=== PATIENT | female | born 1985 | race Caucasian/White ===

== ENCOUNTER 2016-06-12 13:46 | Emergency (ER) | payer OTHER ==
[2016-06-12 15:21] VITALS: BP 128/81
--- NOTE | 2016-06-12 16:02 | UC ---
Complaint Female HPI - HPI Summary HPI Summary: sore on upper thigh/labia, worried it's Herpes. A prior sexual contact told her last year he was exposed to Herpes. She had a similar sore last year, it resolved on its own. Sore is tender to touch. No blistering, no redness or swelling of labia, only one area has a sore. Also having a white/yellowish vaginal discharge, slightly more than usual discharge, mild odor but not "fishy ". No fever. No abd pain. Wishes STD testing "for everything" - History Of Current Complaint Chief Complaint: UCGU Stated Complaint: PERSONAL Time Seen by Provider: 06/12/16 15:41 Hx Obtained From: Patient Hx Last Menstrual Period: 05/20/16 Onset/Duration: Gradual Onset, Lasting Weeks - 1 Timing: Constant Severity Initially: Mild Severity Currently: Mild Character: Burning - sore right labia Alleviating Factor(s): Nothing Associated Signs And Symptoms: Positive: Vaginal Discharge - yellowish - Risk Factors Ectopic Risk Factor: Negative Ovarian Torsion Risk Factor: Negative - Allergies/Home Medications Allergies/Adverse Reactions: Allergies Allergy/AdvReac Type Severity Reaction Status Date / Time No Known Allergies Allergy Verified 06/12/16 15:21 PMH/Surg Hx/FS Hx/Imm Hx Previously Healthy: Yes - Surgical History Surgical History: None - Family History Known Family History: Positive: None - Social History Occupation: Employed Full-time Lives: With Family Alcohol Use: Occasionally Substance Use Type: None Smoking Status (MU): Former Smoker When Did the Patient Quit Smoking/Using Tobacco: 2009 - Immunization History Most Recent Influenza Vaccination: Not the Season Review of Systems Constitutional: Negative Skin: Rash - right upper thigh/labia Eyes: Negative ENT: Negative Respiratory: Negative Cardiovascular: Negative Gastrointestinal: Negative Genitourinary: Other - vaginal discharge Motor: Negative Neurovascular: Negative Musculoskeletal: Negative Neurological: Negative Psychological: Negative All Other Systems Reviewed And Are Negative: Yes Physical Exam Triage Information Reviewed: Yes Appearance: Well-Appearing, No Pain Distress, Well-Nourished Vital Signs: Initial Vital Signs Temp 98.8 F 06/12/16 15:15 Pulse 89 06/12/16 15:15 Resp 16 06/12/16 15:15 BP 128/81 06/12/16 15:15 Pulse Ox 100 06/12/16 15:15 Vital Signs Reviewed: Yes Eye Exam: Normal Neck exam: Normal Respiratory Exam: Normal Cardiovascular Exam: Normal Musculoskeletal Exam: Normal Neurological Exam: Normal Psychological Exam: Normal Skin Exam: Other - eroded area, 1cm x 2cm on right labia majora at upper thigh. Raw, oozing, tender to touch. No surrounding redness or swelling. No blisters seen. Does not appear consistent with Herpes, but is very tender. Swabbed the sore for Herpes. She did her own vaginal swab, sent for Affirm. Urine sent for GC/chlamydia. Blood for HIV and syphilis screens. Complaint Female Dx - Differential Dx/Diagnosis Provider Diagnoses: bacterial vaginosis Discharge - Discharge Plan Condition: Stable Disposition: HOME Prescriptions: Metronidazole [Flagyl 500 MG TAB] 500 mg PO TID #21 tab Patient Education Materials: Bacterial Vaginosis (ED) Referrals: Emily Irwin MD [Primary Care Provider] - Additional Instructions: We sent several tests today. All of them take 3 days to get results. We sent gonorrhea, chlamydia, yeast, bacterial overgrowth, and trichomonas tests, as well as blood tests for HIV and syphilis. We will contact you if anything is positive. If you haven't heard from us by noon, call here to verify all of your results were normal.
[2016-06-13 09:57] LABS: Syphilis Index < 0.1 Index
== END 2016-06-12 16:16 | disposition home or self-care (01) ==
LOC: UCCORT 13:46
DX: N76.0 Acute vaginitis (principal); Z11.4 Encounter for screening for human immunodeficiency virus [HIV]; Z87.891 Personal history of nicotine dependence
CPT/HCPCS: 36415; 86592; 86703; 87480; 87491; 87510; 87529; 87591; 87660; 99212; G0463

== ENCOUNTER 2016-10-06 09:03 | Emergency (ER) | payer MEDICAID ==
[2016-10-06 09:47] VITALS: BP 108/80
--- NOTE | 2016-10-06 09:49 | UC ---
Lower Extremity/Ankle HPI - HPI Summary HPI Summary: LEFT FOOT PAIN X 3 DAY + INJURY TO LEFT ANKLE / FOOT , TWISTED HIS LEFT FOOT HE HIT THE LOWER PART OF THE BASKETBALL HOOP PAIN WITH WALKING , MILD SWELLING - History of Current Complaint Chief Complaint: UCLowerExtremity Stated Complaint: RIGHT LEG PAIN Time Seen by Provider: 10/06/16 09:44 Hx Obtained From: Patient, Family/Research Program Coordinator Hx Last Menstrual Period: 09/28/16 Onset/Duration: Sudden Onset, Lasting Days - 3, Still Present Severity Initially: Moderate Severity Currently: Moderate Aggravating Factor(s): Standing, Ambulation Alleviating Factor(s): Rest, Elevation, Ice Able to Bear Weight: Yes - Allergies/Home Medications Allergies/Adverse Reactions: Allergies Allergy/AdvReac Type Severity Reaction Status Date / Time No Known Allergies Allergy Verified 10/06/16 09:43 PMH/Surg Hx/FS Hx/Imm Hx Previously Healthy: Yes - Surgical History Surgical History: None - Family History Known Family History: Positive: None Negative: Diabetes - Social History Alcohol Use: Occasionally Substance Use Type: None Smoking Status (MU): Former Smoker When Did the Patient Quit Smoking/Using Tobacco: 2009 - Immunization History Most Recent Influenza Vaccination: Not the Season Review of Systems Constitutional: Negative Skin: Negative Eyes: Negative ENT: Negative Respiratory: Negative All Other Systems Reviewed And Are Negative: Yes Physical Exam Triage Information Reviewed: Yes Appearance: Well-Appearing, No Pain Distress, Well-Nourished Vital Signs: Initial Vital Signs Temp 97.4 F 10/06/16 09:39 Pulse 86 10/06/16 09:39 Resp 14 10/06/16 09:39 BP 108/80 10/06/16 09:39 Pulse Ox 100 10/06/16 09:39 Vital Signs Reviewed: Yes Eyes: Positive: Conjunctiva Clear ENT: Positive: Normal ENT inspection, Hearing grossly normal, Pharynx normal Neck: Positive: Supple, Nontender, No Lymphadenopathy Respiratory: Positive: Chest non-tender, Lungs clear, Normal breath sounds Cardiovascular: Positive: RRR, No Murmur, Pulses Normal Musculoskeletal: Positive: Other: - LEFT ANKLE: NORMAL EXAM LEFT FOOT : MILD SWELLING , TENDERNESS PROXIMAL FOOT , GOOD ROM Lower Extremity Course/Dx - Differential Dx/Diagnosis Provider Diagnoses: SPRAIN LEFT FOOT Discharge - Discharge Plan Condition: Stable Disposition: HOME Patient Education Materials: Foot Sprain (ED) Referrals: Emily Irwin MD [Primary Care Provider] - 7 Days
--- NOTE | 2016-10-06 10:10 | RAD ---
INDICATION: Right lower extremity pain COMPARISON: None TECHNIQUE: AP, lateral, and oblique views were obtained. FINDINGS: The bony structures, joint spaces, and soft tissues are normal for age. IMPRESSION: NEGATIVE EXAMINATION.
--- NOTE | 2016-10-06 10:40 | UC ---
Lower Extremity/Ankle HPI - HPI Summary HPI Summary: RIGHT PAGAN PAIN X 5 DAY , STARTED TO EXERCISE FOR THE PAST 2 MONTH, RUNNING FOR ABOUT 20 MIN EVER OTHER DAY , INCREASE PAIN WITH WALING AND WEIGHT BEARING NO SWELLING, NO KNOWN INJURY - History of Current Complaint Chief Complaint: UCLowerExtremity Stated Complaint: RIGHT LEG PAIN Time Seen by Provider: 10/06/16 09:44 Hx Obtained From: Patient, Family/Consulting Services Manager Hx Last Menstrual Period: 09/28/16 Onset/Duration: Sudden Onset, Lasting Days - 5, Still Present Severity Initially: Moderate Severity Currently: Moderate Pain Intensity: 7 Pain Scale Used: 0-10 Numeric Aggravating Factor(s): Standing, Ambulation Alleviating Factor(s): Rest, Elevation, Ice Able to Bear Weight: Yes - Allergies/Home Medications Allergies/Adverse Reactions: Allergies Allergy/AdvReac Type Severity Reaction Status Date / Time No Known Allergies Allergy Verified 10/06/16 09:43 PMH/Surg Hx/FS Hx/Imm Hx Previously Healthy: Yes - Surgical History Surgical History: None - Family History Known Family History: Positive: None Negative: Diabetes - Social History Alcohol Use: Occasionally Substance Use Type: None Smoking Status (MU): Former Smoker When Did the Patient Quit Smoking/Using Tobacco: 2009 - Immunization History Most Recent Influenza Vaccination: Not the Season Review of Systems Constitutional: Negative Skin: Negative Eyes: Negative ENT: Negative Respiratory: Negative All Other Systems Reviewed And Are Negative: Yes Physical Exam Triage Information Reviewed: Yes Appearance: Well-Appearing, No Pain Distress, Well-Nourished Vital Signs: Initial Vital Signs Temp 97.4 F 10/06/16 09:39 Pulse 86 10/06/16 09:39 Resp 14 10/06/16 09:39 BP 108/80 10/06/16 09:39 Pulse Ox 100 10/06/16 09:39 Vital Signs Reviewed: Yes Eyes: Positive: Conjunctiva Clear ENT: Positive: Normal ENT inspection, Hearing grossly normal, Pharynx normal Neck: Positive: Supple, Nontender, No Lymphadenopathy Respiratory: Positive: Chest non-tender, Lungs clear, Normal breath sounds Cardiovascular: Positive: RRR, No Murmur, Pulses Normal Musculoskeletal: Positive: Other: - RIGHT PAGAN: NO SWELLING, NO ERYTHEMA, + TENDERNESS MID PAGAN AREA Lower Extremity Course/Dx - Differential Dx/Diagnosis Provider Diagnoses: PAGAN SPLINT RIGHT LEG Discharge - Discharge Plan Condition: Stable Disposition: HOME Patient Education Materials: Pagan Splints (ED) Referrals: Emily Irwin MD [Primary Care Provider] - 7 Days
== END 2016-10-06 10:23 | disposition home or self-care (01) ==
LOC: UCCORT 09:03
DX: S93.602A Unspecified sprain of left foot, initial encounter (principal); X50.1XXA Overexertion from prolonged static or awkward postures, initial encounter; Y93.67 Activity, basketball; Y99.9 Unspecified external cause status
CPT/HCPCS: 99211; G0463

== ENCOUNTER 2016-11-10 15:34 | Emergency (ER) | payer MEDICAID ==
[2016-11-10 17:11] VITALS: BP 109/77
--- NOTE | 2016-11-10 17:27 | UC ---
Complaint Female HPI - HPI Summary HPI Summary: complaint of vaginal discharge that started approx 4 weeks ago white mucousy discharge- no odor denies itchiness mild lower back pain for the last 2 weeks after she started running regularly denies dysuria denies abdominal pain, pelvic pain denies fever LMP 10/29/16- normal sees Dr Iriwn -PCP- pap smear scheduled for 11/14/16 - History Of Current Complaint Chief Complaint: UCGU Stated Complaint: PERSONAL Time Seen by Provider: 11/10/16 17:19 Hx Obtained From: Patient Hx Last Menstrual Period: 10/29/16 - Allergies/Home Medications Allergies/Adverse Reactions: Allergies Allergy/AdvReac Type Severity Reaction Status Date / Time No Known Allergies Allergy Verified 11/10/16 17:11 PMH/Surg Hx/FS Hx/Imm Hx Previously Healthy: Yes - Surgical History Surgical History: None - Family History Known Family History: Positive: None Negative: Cardiac Disease, Hypertension, Diabetes - Social History Occupation: Employed Full-time Lives: With Family Alcohol Use: Occasionally Substance Use Type: None Smoking Status (MU): Former Smoker When Did the Patient Quit Smoking/Using Tobacco: 2009 - Immunization History Most Recent Influenza Vaccination: Not the Season Review of Systems Constitutional: Negative Skin: Negative Eyes: Negative ENT: Negative Respiratory: Negative Cardiovascular: Negative Gastrointestinal: Negative Genitourinary: Other - vaginal discharge Motor: Negative Neurovascular: Negative Musculoskeletal: Negative Neurological: Negative Psychological: Negative All Other Systems Reviewed And Are Negative: Yes Physical Exam Triage Information Reviewed: Yes Appearance: No Pain Distress, Well-Nourished Vital Signs: Initial Vital Signs Temp 99.5 F 11/10/16 17:06 Pulse 84 11/10/16 17:06 Resp 16 11/10/16 17:06 BP 109/77 11/10/16 17:06 Pulse Ox 99 11/10/16 17:06 Vital Signs Reviewed: Yes Eyes: Positive: Conjunctiva Clear ENT: Positive: Pharynx normal, TMs normal Neck: Positive: No Lymphadenopathy Respiratory: Positive: Lungs clear, Normal breath sounds, No respiratory distress Cardiovascular: Positive: RRR, No Murmur, Pulses Normal Abdomen Description: Positive: Nontender, Soft Bowel Sounds: Positive: Present Musculoskeletal: Positive: No Edema Neurological: Positive: Alert Psychological Exam: Normal Skin Exam: Normal Skin: Positive: Other - External genitalia without erythema Vaginal vault with thin white discharge. Cervix is of normal color without lesion. The os is closed. There is no bleeding noted. Uterus is noted to be of normal size and nontender. No cervical motion tenderness is seen. Complaint Female Dx - Differential Dx/Diagnosis Differential Diagnosis/HQI/PQRI: Sexually Transmitted Disease, Other - vaginosis Provider Diagnoses: bacterial vaginosis Discharge - Discharge Plan Condition: Stable Disposition: HOME Prescriptions: Metronidazole [Flagyl 500 MG TAB] 500 mg PO BID #14 tab Patient Education Materials: Bacterial Vaginosis (ED) Referrals: Emily Irwin MD [Primary Care Provider] - Additional Instructions: Please start flagyl as directed Increase fluids and rest Take acetaminophen or ibuprofen for fever or pain Please review your discharge instructions. If your symptoms do not improve please call your primary care provider or return to urgent care.
== END 2016-11-10 18:16 | disposition home or self-care (01) ==
LOC: UCCORT 15:34
DX: N76.0 Acute vaginitis (principal); Z87.891 Personal history of nicotine dependence
CPT/HCPCS: 87480; 87510; 87661; 99212; G0463

== ENCOUNTER 2017-01-02 16:07 | Emergency (ER) | payer OTHER ==
[2017-01-02 16:19] VITALS: BP 116/84
--- NOTE | 2017-01-02 16:49 | UC ---
Throat Pain/Nasal Crow HPI - HPI Summary HPI Summary: 31 y/o with c/o sore throat x 24 hours, pain sternal region, no SOB, no deep chest pain, fatigue/ malaise, overall body aches, ear pain with swallowing R side. no other PMH, no recent ABX, illnesses. - History of Current Complaint Hx Obtained From: Patient Hx Last Menstrual Period: 12/26/16 ?: Yes Onset/Duration: Sudden Onset, Lasting Hours, Still Present Severity: Mild Cough: Nonproductive - minimal Associated Signs & Symptoms: Positive: Fever - tactile feeling - Epiglottits Risk Factors Epiglottis Risk Factors: Negative <Dilia Ely - Last Filed: 01/02/17 17:05> <Lois Young - Last Filed: 01/02/17 17:11> - History of Current Complaint Chief Complaint: UCGeneralIllness Stated Complaint: SORE THROAT,CHEST PAIN Time Seen by Provider: 01/02/17 16:11 - Allergies/Home Medications Allergies/Adverse Reactions: Allergies Allergy/AdvReac Type Severity Reaction Status Date / Time No Known Allergies Allergy Verified 01/02/17 16:14 Home Medications: Home Medications Ibuprofen TAB* [Advil TAB*] 200 mg PO Q6H PRN 01/02/17 [History Confirmed ] ValACYclovir (*) [Valtrex 500 mg (*)] 500 mg PO QAM 01/02/17 [History Confirmed 01/02/17] PMH/Surg Hx/FS Hx/Imm Hx Previously Healthy: Yes - Surgical History Surgical History: None - Family History Known Family History: Positive: None Negative: Cardiac Disease, Hypertension, Diabetes - Social History Alcohol Use: Occasionally Substance Use Type: None Smoking Status (MU): Former Smoker When Did the Patient Quit Smoking/Using Tobacco: 2009 - Immunization History Most Recent Influenza Vaccination: Not the 2017/2017 Season <iDlia Ely - Last Filed: 01/02/17 17:05> Review of Systems Constitutional: Fatigue ENT: Sore Throat, Ear Ache Cardiovascular: Chest Pain - sternal All Other Systems Reviewed And Are Negative: Yes <Dilia Ely - Last Filed: 01/02/17 17:05> Physical Exam Triage Information Reviewed: Yes Appearance: Well-Appearing, No Pain Distress, Well-Nourished Vital Signs: Initial Vital Signs Temp 99 F 01/02/17 16:11 Pulse 104 01/02/17 16:11 Resp 16 01/02/17 16:11 BP 116/84 01/02/17 16:11 Pulse Ox 100 01/02/17 16:11 Vital Signs Reviewed: Yes Eyes: Positive: Conjunctiva Clear ENT: Positive: Hearing grossly normal, Pharyngeal erythema - mild to moderate, TM dull - fluid behind R TM Neck: Positive: Supple, Nontender, Enlarged Nodes @ - submand Respiratory: Positive: Chest non-tender, Lungs clear, Normal breath sounds, No respiratory distress, No accessory muscle use Cardiovascular: Positive: RRR, No Murmur Abdomen Description: Positive: Nontender, No Organomegaly Skin Exam: Normal <Dilia Ely - Last Filed: 01/02/17 17:05> Vital Signs: Initial Vital Signs Temp 99 F 01/02/17 16:11 Pulse 104 01/02/17 16:11 Resp 16 01/02/17 16:11 BP 116/84 01/02/17 16:11 Pulse Ox 100 01/02/17 16:11 <Lois Young - Last Filed: 01/02/17 17:11> Throat Pain/Nasal Course/Dx - Course Course Of Treatment: rapid strep +, ABx sent in to pharm, work note, follow up in 2-3 days if symptoms not improved - Differential Dx/Diagnosis Differential Diagnosis/HQI/PQRI: Epiglottitis, Influenza, Otitis Media, Pharyngitis Provider Diagnoses: pharyngitis, strep A + <Dilia Ely - Last Filed: 01/02/17 17:05> Discharge <Dilia Ely - Last Filed: 01/02/17 17:05> <Lois Young - Last Filed: 01/02/17 17:11> - Discharge Plan Condition: Good Disposition: HOME Prescriptions: Amoxicillin PO (*) [Amoxicillin 500 MG CAP*] 500 mg PO Q12H #20 cap Patient Education Materials: Strep Throat (ED) Forms: *Work Release Referrals: Emily Irwin MD [Primary Care Provider] - Additional Instructions: - Rapid strep + for step throat Antibiotics as directed x 10 days - motrin/ tylenol as needed for pain - Call for blood results within 3-4 days - Follow up at ER or UC if symptoms do not improve or worsen over 48 hours Attestation Statement User Type: Provider - I was available for consult. This patient was seen by the ARLINE. The patient was not presented to, seen by, or examined by me. -Nancie <Lois Young - Last Filed: 01/02/17 17:11>
== END 2017-01-02 17:00 | disposition home or self-care (01) ==
LOC: UCCORT 16:07
DX: J02.0 Streptococcal pharyngitis (principal); Z11.4 Encounter for screening for human immunodeficiency virus [HIV]; Z87.891 Personal history of nicotine dependence
CPT/HCPCS: 36415; 86703; 99212; G0463

== ENCOUNTER 2017-02-16 15:43 | Emergency (ER) | payer OTHER ==
[2017-02-16 15:58] VITALS: BP 116/86
--- NOTE | 2017-02-16 17:02 | UC ---
Throat Pain/Nasal Crow HPI - History of Current Complaint Chief Complaint: UCGeneralIllness Stated Complaint: SORE THROAT Time Seen by Provider: 02/16/17 16:53 Hx Last Menstrual Period: 01/26/17 - Allergies/Home Medications Allergies/Adverse Reactions: Allergies Allergy/AdvReac Type Severity Reaction Status Date / Time No Known Allergies Allergy Verified 01/02/17 16:14 PMH/Surg Hx/FS Hx/Imm Hx - Surgical History Surgical History: None - Family History Known Family History: Positive: None Negative: Cardiac Disease, Hypertension, Diabetes - Social History Alcohol Use: Occasionally Substance Use Type: None Smoking Status (MU): Former Smoker When Did the Patient Quit Smoking/Using Tobacco: 2009 - Immunization History Most Recent Influenza Vaccination: Not the Season Physical Exam Vital Signs: Initial Vital Signs Temp 98.2 F 02/16/17 15:53 Pulse 74 02/16/17 15:53 Resp 16 02/16/17 15:53 BP 116/86 02/16/17 15:53 Pulse Ox 100 02/16/17 15:53
[2017-02-19 23:17] LABS: HS/VZ Source LIP; Varicella Zoster Result Negative (Negative); Varicella Zoster Source LIP
== END 2017-02-16 17:26 | disposition home or self-care (01) ==
LOC: UCCORT 15:43
DX: J02.9 Acute pharyngitis, unspecified (principal); Z87.891 Personal history of nicotine dependence
CPT/HCPCS: 87529; 87651; 87798; 99211; G0463

== ENCOUNTER 2017-06-28 07:15 | Emergency (ER) | payer OTHER ==
[2017-06-28 07:49] VITALS: BP 113/69
--- NOTE | 2017-06-28 08:12 | UC ---
Complaint Female HPI - HPI Summary HPI Summary: 32F with burning with urination for 1 day. No fever. No n.v/d. Currently on cephalexin for dental abscess. Just had a nuva ring 2 weeks ago placed. no . - History Of Current Complaint Chief Complaint: UCGU Stated Complaint: URINARY Time Seen by Provider: 06/28/17 07:55 Hx Obtained From: Patient Hx Last Menstrual Period: 06/17/17 Timing: Constant Severity Initially: Moderate Severity Currently: Moderate Pain Intensity: 4 Aggravating Factor(s): Urination Alleviating Factor(s): Nothing - Allergies/Home Medications Allergies/Adverse Reactions: Allergies Allergy/AdvReac Type Severity Reaction Status Date / Time No Known Allergies Allergy Verified 06/28/17 07:40 Home Medications: Home Medications Ms Cephalexin 500 mg PO TID 06/28/17 [History Confirmed 06/28/17] Ms Nuvaring 1 unit VAGINAL SEE INSTRUCTIONS 06/28/17 [History Confirmed 06/28/17 ] PMH/Surg Hx/FS Hx/Imm Hx Previously Healthy: Yes - Surgical History Surgical History: Yes Surgery Procedure, Year, and Place: D and C - Family History Known Family History: Positive: None Negative: Cardiac Disease, Hypertension, Diabetes - Social History Occupation: Employed Full-time Alcohol Use: Occasionally Substance Use Type: None Smoking Status (MU): Former Smoker When Did the Patient Quit Smoking/Using Tobacco: 2009 - Immunization History Most Recent Influenza Vaccination: Not the Season Review of Systems Genitourinary: Dysuria, Frequency, Urgency Is Patient Immunocompromised?: No All Other Systems Reviewed And Are Negative: Yes Physical Exam Triage Information Reviewed: Yes Appearance: Well-Appearing, No Pain Distress, Well-Nourished Vital Signs: Initial Vital Signs Temp 99 F 06/28/17 07:43 Pulse 76 06/28/17 07:43 Resp 18 06/28/17 07:43 BP 113/69 06/28/17 07:43 Pulse Ox 100 06/28/17 07:43 Vital Signs Reviewed: Yes Eye Exam: Normal ENT Exam: Normal Dental Exam: Normal Neck exam: Normal Neck: Positive: 1 Respiratory Exam: Normal Cardiovascular Exam: Normal Abdominal Exam: Normal Abdomen Description: Negative: CVA Tenderness (R), CVA Tenderness (L) Musculoskeletal Exam: Normal Neurological Exam: Normal Psychological Exam: Normal Skin Exam: Normal Complaint Female Dx - Course Course Of Treatment: Send for culture. Finish the cephalexin . If resistant to cephalexin then can start alternative antibiotic. - Differential Dx/Diagnosis Differential Diagnosis/HQI/PQRI: Ureteral Stone, Urinary Tract Infection Provider Diagnoses: UTI Discharge - Discharge Plan Condition: Good Disposition: HOME Referrals: Emily Irwin MD [Primary Care Provider] - 4 Days
== END 2017-06-28 08:43 | disposition home or self-care (01) ==
LOC: UCCORT 07:15
DX: N39.0 Urinary tract infection, site not specified (principal); Z87.891 Personal history of nicotine dependence
CPT/HCPCS: 81003; 87086; 99211; G0463

== ENCOUNTER 2017-08-09 16:42 | Emergency (ER) | payer OTHER ==
[2017-08-09 17:16] VITALS: BP 134/82
--- NOTE | 2017-08-09 17:29 | UC ---
Complaint Female HPI - HPI Summary HPI Summary: On 3 rd month of nuova Ring---Has had large amont of vaginal d/c without pain, odor, uses a condom same partner for >1 year on valtrex - History Of Current Complaint Chief Complaint: UCGU Stated Complaint: PERSONAL Time Seen by Provider: 08/09/17 17:26 Hx Obtained From: Patient Hx Last Menstrual Period: 06/17/17 ?: No Onset/Duration: Sudden Onset, Lasting Days, Still Present Timing: Constant Severity Currently: None Pain Intensity: 0 Pain Scale Used: 0-10 Numeric - Allergies/Home Medications Allergies/Adverse Reactions: Allergies Allergy/AdvReac Type Severity Reaction Status Date / Time No Known Allergies Allergy Verified 08/09/17 17:16 Home Medications: Home Medications Nuvaring 1 dose VAGINAL MONTHLY 08/09/17 [History Confirmed 08/09/17] PMH/Surg Hx/FS Hx/Imm Hx Previously Healthy: Yes - Surgical History Surgical History: Yes Surgery Procedure, Year, and Place: D and C - Family History Known Family History: Positive: None Negative: Cardiac Disease, Hypertension, Diabetes - Social History Occupation: Employed Full-time Lives: With Family Alcohol Use: Occasionally Substance Use Type: None Smoking Status (MU): Former Smoker When Did the Patient Quit Smoking/Using Tobacco: 2009 - Immunization History Most Recent Influenza Vaccination: Not the Season Review of Systems Constitutional: Negative Skin: Negative Eyes: Negative ENT: Negative Respiratory: Negative Cardiovascular: Negative Gastrointestinal: Negative Genitourinary: Negative, Vaginal/Penile Discharge Motor: Negative Neurovascular: Negative Musculoskeletal: Negative Neurological: Negative Psychological: Negative Is Patient Immunocompromised?: No All Other Systems Reviewed And Are Negative: Yes Physical Exam Triage Information Reviewed: Yes Appearance: Well-Appearing, No Pain Distress, Well-Nourished Vital Signs: Initial Vital Signs Temp 99.2 F 08/09/17 17:13 Pulse 51 08/09/17 17:13 Resp 12 08/09/17 17:13 BP 134/82 08/09/17 17:13 Pulse Ox 100 08/09/17 17:13 Vital Signs Reviewed: Yes Eye Exam: Normal Eyes: Positive: Conjunctiva Clear ENT Exam: Normal ENT: Positive: Normal ENT inspection, Hearing grossly normal, Pharynx normal. Negative: Nasal congestion, Nasal drainage, Trismus, Muffled voice, Hoarse voice Dental Exam: Normal Neck exam: Normal Neck: Positive: Supple, Nontender, No Lymphadenopathy Respiratory Exam: Normal Respiratory: Positive: Chest non-tender, Lungs clear, Normal breath sounds, No respiratory distress, No accessory muscle use Cardiovascular Exam: Normal Cardiovascular: Positive: RRR, No Murmur, Pulses Normal, Brisk Capillary Refill Abdominal Exam: Normal Abdomen Description: Positive: Nontender, No Organomegaly, Soft. Negative: CVA Tenderness (R), CVA Tenderness (L), Distended, Guarding Bowel Sounds: Positive: Present Musculoskeletal Exam: Normal Musculoskeletal: Positive: Strength Intact, ROM Intact, No Edema Neurological Exam: Normal Neurological: Positive: Alert, Muscle Tone Normal Psychological Exam: Normal Skin Exam: Normal UC Physical Exam Vital Signs On Initial Exam: Initial Vitals Temp Pulse Resp BP Pulse Ox 99.2 F 51 12 134/82 100 08/09/17 17:13 08/09/17 17:13 08/09/17 17:13 08/09/17 17:13 08/09/17 17:13 - Genitalia Exam Female Genitourinary: Normal External Exam, Other - white vaginal discharge-- Complaint Female Dx - Course Course Of Treatment: lab studies obtain will treat based on lab studies, - Differential Dx/Diagnosis Provider Diagnoses: vaginitis Discharge - Discharge Plan Condition: Stable Disposition: HOME Patient Education Materials: Vaginitis (ED) Referrals: Emily Irwin MD [Primary Care Provider] - If Needed
== END 2017-08-09 18:05 | disposition home or self-care (01) ==
LOC: UCCORT 16:42
DX: N76.0 Acute vaginitis (principal); Z87.891 Personal history of nicotine dependence
CPT/HCPCS: 87480; 87491; 87510; 87591; 87661; 99211; G0463

== ENCOUNTER 2017-09-26 10:08 | Emergency (ER) | payer OTHER ==
[2017-09-26 11:04] VITALS: BP 120/82
--- NOTE | 2017-09-26 11:36 | UC ---
Respiratory Complaint HPI - HPI Summary HPI Summary: Cough and congestion for about 8 days. No fever, sob, hemoptysis. Cough is productive of clear phlegm. Son had similar illness about a week ago. She denies asthma, smoking, lung disease. - History of Current Complaint Chief Complaint: UCRespiratory Stated Complaint: CONGESTION Time Seen by Provider: 09/26/17 11:19 Hx Obtained From: Patient Hx Last Menstrual Period: 08/31 Onset/Duration: Gradual Onset, Lasting Days Timing: Constant Severity Initially: Mild Severity Currently: Moderate Pain Intensity: 0 Character: Cough: Productive Aggravating Factors: Deep Breaths, Recumbent Position Alleviating Factors: Upright Position, Spontaneous Resolution Associated Signs And Symptoms: Positive: URI, Nasal Congestion. Negative: Dyspnea, Fever, Chills, Pleuritic Chest Pain, Wheezing, Hemoptysis, Dizziness, Calf Pain, Calf Swelling, Sinus Discomfort - Allergies/Home Medications Allergies/Adverse Reactions: Allergies Allergy/AdvReac Type Severity Reaction Status Date / Time No Known Allergies Allergy Verified 09/26/17 11:04 Home Medications: Home Medications Fluticasone NASAL SPRAY 50MCG* [Flonase NASAL SPRAY 50MCG*] 2 spray BOTH NARES DAILY PRN 09/26/17 [History Confirmed 09/26/17] PMH/Surg Hx/FS Hx/Imm Hx Previously Healthy: Yes - Surgical History Surgical History: Yes Surgery Procedure, Year, and Place: D and C - Family History Known Family History: Positive: None Negative: Cardiac Disease, Hypertension, Diabetes - Social History Occupation: Employed Full-time Lives: With Family Alcohol Use: Occasionally Substance Use Type: None Smoking Status (MU): Former Smoker When Did the Patient Quit Smoking/Using Tobacco: 2009 - Immunization History Most Recent Influenza Vaccination: Not the Season Review of Systems ENT: Sinus Congestion Respiratory: Cough All Other Systems Reviewed And Are Negative: Yes Physical Exam Triage Information Reviewed: Yes Appearance: Well-Appearing, No Pain Distress, Well-Nourished Vital Signs: Initial Vital Signs Temp 98.4 F 09/26/17 10:57 Pulse 91 09/26/17 10:57 Resp 20 09/26/17 10:57 BP 120/82 09/26/17 10:57 Pulse Ox 100 09/26/17 10:57 Vital Signs Reviewed: Yes Eyes: Positive: Conjunctiva Clear. Negative: Conjunctiva Inflamed ENT: Positive: Normal ENT inspection, Pharynx normal, Nasal congestion, TMs normal, Uvula midline. Negative: Pharyngeal erythema, Nasal drainage, TM bulging, TM dull, TM red, Tonsillar swelling, Tonsillar exudate, Trismus, Muffled voice, Sinus tenderness Neck: Positive: Supple, Nontender, No Lymphadenopathy Respiratory: Positive: Lungs clear, Normal breath sounds, No respiratory distress, No accessory muscle use. Negative: Respiratory distress, Decreased breath sounds, Accessory muscle use, Crackles, Rhonchi, Stridor, Wheezing Cardiovascular: Positive: No Murmur, Pulses Normal Abdomen Description: Positive: No Organomegaly, Soft. Negative: Distended, Guarding Musculoskeletal: Positive: Strength Intact, ROM Intact, No Edema Neurological: Positive: Alert, Muscle Tone Normal, Fatigued Psychological Exam: Normal Psychological: Positive: Age Appropriate Behavior Skin: Negative: rashes UC Diagnostic Evaluation - Laboratory O2 Sat by Pulse Oximetry: 100 Respiratory Course/Dx - Differential Dx/Diagnosis Provider Diagnoses: viral chest cold/uri Discharge - Sign-Out/Discharge Documenting (check all that apply): Discharge/Admit/Transfer - Discharge Plan Condition: Good Disposition: HOME Prescriptions: Azithromyxin JUICE (NF) [Z-Juice (Zithromax) 250 mg tabs #6] 2 tab PO .TODAY, THEN 1 DAILY #6 tab Benzonatate CAP* [Tessalon 100 MG CAP*] 100 mg PO TID PRN #30 cap PRN Reason: Cough Patient Education Materials: Upper Respiratory Infection (ED) Forms: *Work Release Referrals: Emily Irwin MD [Primary Care Provider] - Additional Instructions: Matt DELGADO and kike nails for the cough as needed. If not better in 3 days, then you can start the z pack at that point. Antibiotics will likely not help. - Billing Disposition and Condition Condition: GOOD Disposition: HOME
== END 2017-09-26 11:39 | disposition home or self-care (01) ==
LOC: UCCORT 10:08
DX: J06.9 Acute upper respiratory infection, unspecified (principal); Z87.891 Personal history of nicotine dependence
CPT/HCPCS: 99212; G0463

== ENCOUNTER 2017-12-04 13:57 | Emergency (ER) | payer OTHER ==
[2017-12-04 14:17] VITALS: BP 113/77
[2017-12-04] MEDS ORDERED: Lidocaine 1%* 5 ML VIAL INJ ONE (14:23)
--- NOTE | 2017-12-04 14:30 | UC ---
Hand/Wrist HPI - HPI Summary HPI Summary: Patient woke up 2 days ago with pain and swelling around her left nail. She's been treating it with soaking and applying Neosporin without relief. She did have her nails done the before. She offers no other complaints. - History Of Current Complaint Chief Complaint: UCUpperExtremity Stated Complaint: INDEX FINGER-LFT HAND Time Seen by Provider: 12/04/17 14:18 Hx Obtained From: Patient Hx Last Menstrual Period: nuvaring Onset/Duration: Gradual Onset Pain Intensity: 9 Alleviating Factor(s): Nothing Associated Signs And Symptoms: Positive: Swelling, Redness. Negative: Weakness , Numbness/Tingling - Allergies/Home Medications Allergies/Adverse Reactions: Allergies Allergy/AdvReac Type Severity Reaction Status Date / Time No Known Allergies Allergy Verified 12/04/17 14:12 PMH/Surg Hx/FS Hx/Imm Hx - Additional Past Medical History Additional PMH: HSV - Surgical History Surgical History: Yes Surgery Procedure, Year, and Place: D and C - Family History Known Family History: Positive: None Negative: Cardiac Disease, Hypertension, Diabetes - Social History Occupation: Employed Full-time Lives: With Family Alcohol Use: Occasionally Substance Use Type: None Smoking Status (MU): Former Smoker When Did the Patient Quit Smoking/Using Tobacco: 2009 - Immunization History Most Recent Influenza Vaccination: Not the 2016/2017 Season Most Recent Tetanus Shot: 2011 Vaccination Up to Date: Yes Review of Systems Constitutional: Negative Skin: Other - swelling by L index nail Eyes: Negative ENT: Negative Respiratory: Negative Cardiovascular: Negative Gastrointestinal: Negative Genitourinary: Negative Motor: Negative Neurovascular: Negative Musculoskeletal: Negative Neurological: Negative Psychological: Negative Is Patient Immunocompromised?: No All Other Systems Reviewed And Are Negative: Yes Physical Exam Triage Information Reviewed: Yes Appearance: Well-Appearing Vital Signs: Initial Vital Signs Temp 98.6 F 12/04/17 14:13 Pulse 79 12/04/17 14:13 Resp 16 12/04/17 14:13 BP 113/77 12/04/17 14:13 Pulse Ox 100 12/04/17 14:13 Eyes: Positive: Conjunctiva Clear ENT: Positive: Normal ENT inspection Neck: Positive: Supple Respiratory: Positive: Lungs clear, Normal breath sounds Cardiovascular: Positive: RRR, No Murmur Abdomen Description: Positive: Nontender, No Organomegaly, Soft Bowel Sounds: Positive: Present Musculoskeletal: Positive: ROM Intact Neurological: Positive: Alert Psychological: Positive: Age Appropriate Behavior Skin Exam: Normal, Other - mild red and swelling around L index nail. Fluctuant and tender. s/v/m intact. Procedures - Procedure Summary Procedure Summary: Timeout done. Left index fingertip prep with Betadine. Local with 0.4 a Alayna's 1% lidocaine and 30-gauge needle. Tip of #11 blade used to make stab incision and small amount of pus drained. Sterile technique used. Site cleaned with soap and water, rinsed and covered with bacitracin and bandage. Patient tolerated well. Hand/Wrist Course/Dx - Course Course Of Treatment: local erythema post I&D thus will cover with augmentin. - Differential Dx/Diagnosis Provider Diagnoses: I&D paronychia left index finger Discharge - Sign-Out/Discharge Documenting (check all that apply): Patient Departure - Discharge Plan Condition: Stable Disposition: HOME Prescriptions: Amoxicillin/Clavulanate TAB* [Augmentin TAB 875*] 875 mg PO BID #14 tab Patient Education Materials: Paronychia (ED) Referrals: Emily Irwin MD [Primary Care Provider] - 3 Days - Billing Disposition and Condition Condition: STABLE Disposition: Home
== END 2017-12-04 14:44 | disposition home or self-care (01) ==
LOC: UCCORT 13:57
DX: L03.012 Cellulitis of left finger (principal); Z87.891 Personal history of nicotine dependence
CPT/HCPCS: 10060; 99212; G0463